=== PATIENT | male | born 1945 | race Caucasian/White ===

== ENCOUNTER 2019-05-21 10:44 | Outpatient (RCR) | payer MEDICARE | END 2019-08-19 | disposition home or self-care (01) | LOC: LAB 10:44 | PROVIDERS: ATTEND Family Medicine | DX: R19.7 Diarrhea, unspecified (principal) | CPT/HCPCS: 87324; 87449 ==

== ENCOUNTER 2019-05-30 11:47 | Outpatient (RCR) | payer MEDICARE | END 2019-08-28 | disposition home or self-care (01) | LOC: LAB 11:47 | PROVIDERS: ATTEND Family Medicine | DX: R19.7 Diarrhea, unspecified (principal) ==

== ENCOUNTER → 2019-06-23 | Outpatient (CLI) | payer MEDICARE | LOC: LAB 11:30 | PROVIDERS: ATTEND Family Medicine | DX: R19.7 Diarrhea, unspecified (principal) | CPT/HCPCS: 82274; 87015; 87045; 87046; 87324; 87328; 87329; 87449; 87899 ==